=== PATIENT | female | born 1975 | race Two or more races ===

== ENCOUNTER 2017-01-02 12:45 | Emergency (ER) | payer SELFPAY ==
[~2017-01-02] VITALS: Ht 160 cm; Wt 56.7 kg
[2017-01-02 12:59] VITALS: BP 122/65; PULSE 87; RESP 18; TEMP 98.3; O2SAT 100
--- NOTE | 2017-01-02 13:04 | NUR ---
Patient to ER bed 04 to gown for evaluation. Side rails up. Report given to Britta
--- NOTE | 2017-01-02 13:10 | NUR ---
Pt presents to ED c/o intermittent VACA w/dizziness. Pt describes episodes of syncope. Pt denies significant med hx.
--- NOTE | 2017-01-02 13:10 | NUR ---
ER at bedside examining patient.
--- NOTE | 2017-01-02 13:15 | NUR ---
# 20 gauge angiocath placed to RFA. Use of asceptic technique. Opsite placed over site. Blood return noted. Flushed with 10 cc of normal saline. No evidence of infiltration noted. Patient tolerated well.
--- NOTE | 2017-01-02 13:20 | NUR ---
Lab at bedside for blood draw unable to obtain specimen w/iv start.
[2017-01-02 13:42] LABS: BILIRUBIN,URINE NEGATIVE (NEGATIVE); BLOOD, URINE NEGATIVE (NEGATIVE); CLARITY/URINE CLEAR (CLEAR); COLOR,URINE YELLOW (YELLOW); GLUCOSE,URINE NEGATIVE (NEGATIVE); KETONES,URINE NEGATIVE (NEGATIVE); LEUKOCYTE ESTERASE ,URINE 1+ (NEGATIVE); NITRITE, URINE NEGATIVE (NEGATIVE); PH,URINE 5.5 (5.0-8.0); PROTEIN URINE NEGATIVE (NEGATIVE); UROBILINOGEN,URINE 0.2 (0.2-1.0)
[2017-01-02 13:57] LABS: BACTERIA,URINE FEW /HPF (None Seen); MUCUS,URINE 1+ /LPF (None Seen)
[2017-01-02 14:10] LABS: BASOPHILS % (AUTO) 0.4 % (0.0-2.0); EOSINOPHILS % (AUTO) 0.6 % (0.0-4.0); HEMOGLOBIN 9.9 g/dL (12.0-16.0); LYMPHOCYTES % (AUTO) 29.8 % (20.5-51.5); MEAN CORPUSCULAR HEMOGLOBIN 23 pg (27-31); MEAN CORPUSCULAR HGB CONC 32 % (32-36); MEAN CORPUSCULAR VOLUME 72 fL (79.0-98.0); MONOCYTES # (AUTO) 0.5 K/uL (0.0-1.0); MONOCYTES % (AUTO) 7.2 % (1.7-9.3); NEUTROPHILS # (AUTO) 4.2 K/uL (1.8-7.7); PLATELET COUNT (AUTO) 223 K/uL (130-430); RED BLOOD CELL COUNT(AUTO) 4.31 MIL/uL (4.2-6.2); WHITE BLOOD COUNT (AUTO) 6.7 K/uL (4.8-10.8)
[2017-01-02 14:18] LABS: CALCIUM 8.7 mg/dL (8.4-11.0); CREATININE 0.57 mg/dL (0.55-1.30); POTASSIUM 4.2 mmol/L (3.5-5.1)
[2017-01-02 14:23] LABS: ALBUMIN 3.5 g/dL (3.4-4.8); TOTAL BILIRUBIN 0.3 mg/dL (0.0-1.0); TOTAL PROTEIN, SERUM 7.6 g/dL (6.4-8.3)
--- NOTE | 2017-01-02 14:30 | NUR ---
Patient transported to radiology via wheelchair, accompanied by rad staff.
--- NOTE | 2017-01-02 14:50 | NUR ---
Pt tolerated CT scan tolerated.
--- NOTE | 2017-01-02 15:10 | NUR ---
Pt resting, pain mildly resolved w/reducing stimuli. Lights turned off.
[2017-01-02] MEDS ORDERED: KETOROLAC TROMETHAMINE 30 MG VIAL IVP ONE (16:00)
[2017-01-02] MEDS ORDERED: AMOXICILLIN/CLAVULANATE POTASSIUM 875 MG TABLET PO ONE (16:00)
--- NOTE | 2017-01-02 16:09 | NUR ---
Pt to be medicated prior to D/C.
[2017-01-02 16:49] VITALS: BP 118/61; PULSE 81; RESP 19; TEMP 98.7; O2SAT 99
--- NOTE | 2017-01-02 16:50 | NUR ---
Patient given written and verbal discharge instructions and verbalizes understanding. ER MD discussed with patient the results and treatment provided. Given copies of tests performed in ER. Patient in stable condition. ID arm band removed. IV catheter removed intact and dressing applied, no active bleeding. Rx of MOTRIN, MUCINEX, AUGMENTIN given. Patient educated on pain management and to follow up with PMD. Pain Scale 0/10. Opportunity for questions provided and answered.
== END 2017-01-02 16:49 | disposition home or self-care (01) ==
LOC: SED 12:47
DX: J32.0 Chronic maxillary sinusitis (principal)
CPT/HCPCS: 36415; 70450; 70486; 71020; 80053; 81000; 81025; 84484; 85025; 87086; 93005; 96374; 99285; J1885